=== PATIENT | female | born 1945 | race Caucasian/White ===

== ENCOUNTER 2019-06-11 10:37 | Emergency (ER) | payer OTHER, MEDICARE ==
[~2019-06-11] VITALS: Ht 162.6 cm; Wt 77.1 kg
[~2019-06-11 10:37] MED LIST: ATEN100 PO; CALCAVITDA PO; CYAN1000 PO; DIGO.25 PO; Spironolactone25 MG PO
[2019-06-11 11:23] LABS: BASOPHILS ABSOLUTE AUTO 0.01 K/mm3 (0.00-0.23); BASOPHILS PERCENT AUTO 0 % (0-2); EOSINOPHILS ABSOLUTE AUTO 0.29 K/mm3 (0.00-0.68); EOSINOPHILS PERCENT AUTO 4 % (0-6); Hematocrit 42.1 % (33.0-51.0); Hemoglobin 13.7 g/dL (11.5-16.0); IMMATURE GRAN ABSOLUTE AUTO 0.02 K/mm3 (0.00-0.10); IMMATURE GRAN PERCENT AUTO 0 % (0-1); LYMPHOCYTES ABSOLUTE AUTO 2.36 K/mm3 (0.84-5.20); LYMPHOCYTES PERCENT AUTO 36 % (21-46); MONOCYTES ABSOLUTE AUTO 0.49 K/mm3 (0.16-1.47); MONOCYTES PERCENT AUTO 7 % (4-13); Mean Corpuscular HGB 27.8 pg (26.0-34.0); Mean Corpuscular HGB Conc 32.5 g/dL (31.5-36.5); Mean Corpuscular Volume 86 fL (80-100); Mean Platelet Volume 9.8 fL (9.1-12.4); NEUTROPHILS ABSOLUTE AUTO 3.42 K/mm3 (1.96-9.15); NEUTROPHILS PERCENT AUTO 52 % (41-73); Platelet Count 216 K/mm3 (150-400); RDW Coefficient Variation 13.4 % (11.7-14.2); RDW Standard Deviation 41.6 fL (35.1-46.3); Red Blood Cell Count 4.92 M/mm3 (3.80-5.20); White Blood Cell Count 6.59 K/mm3 (4.00-11.30)
[2019-06-11 11:49] LABS: Alanine Aminotransfer (ALT/SGP 34 U/L (12-78); Albumin, Blood 4.2 g/dL (3.4-5.0); Albumin/Globulin Ratio 1.1 (0.8-1.8); Alk Phos 82 U/L (50-136); Anion Gap 8 mmol/L (6-16); Aspartate Aminotrans (AST/SGOT 25 U/L (12-37); Bilirubin, Total 0.9 mg/dL (0.1-1.0); Blood Urea Nitrogen 20 mg/dL (8-24); Bun/Creatinine Ratio 30.4 (12.0-20.0); CO2, Blood 28 mmol/L (21-32); Calcium, Blood 8.9 mg/dL (8.5-10.1); Chloride, Blood 102 mmol/L (98-108); Creatinine, Blood 0.66 mg/dL (0.40-1.00); Globulin, Blood 3.9 g/dL (2.2-4.0); Glomerular Filtration Rate >60 (60-); Glucose, Blood 124 mg/dL (70-99); Sodium, Blood 138 mmol/L (136-145); Total Protein, Blood 8.1 g/dL (6.4-8.2); Troponin I <0.015 ng/mL (0.000-0.040)
== END 2019-06-11 13:49 | disposition home or self-care (01) ==
LOC: ER 10:37
PROVIDERS: Emergency Medicine
DX: I48.91 Unspecified atrial fibrillation (principal); Z88.5 Allergy status to narcotic agent; Z88.6 Allergy status to analgesic agent; Z88.8 Allergy status to other drugs, medicaments and biological substances; Z79.899 Other long term (current) drug therapy; Z87.891 Personal history of nicotine dependence
CPT/HCPCS: 36415; 71046; 80053; 83880; 84484; 85025; 93005; 93010; 99285-25

== ENCOUNTER 2021-02-02 09:23 | Inpatient (IN) | payer BC, MEDICARE ==
[~2021-02-02] VITALS: Ht 162.6 cm; Wt 71.2 kg
[2021-02-02 10:10] LABS: BASOPHILS ABSOLUTE AUTO 0.01 K/mm3 (0.00-0.23); BASOPHILS PERCENT AUTO 0 % (0-2); EOSINOPHILS ABSOLUTE AUTO 0.06 K/mm3 (0.00-0.68); EOSINOPHILS PERCENT AUTO 1 % (0-6); Hematocrit 39.6 % (33.0-51.0); IMMATURE GRAN ABSOLUTE AUTO 0.04 K/mm3 (0.00-0.10); IMMATURE GRAN PERCENT AUTO 1 % (0-1); LYMPHOCYTES ABSOLUTE AUTO 1.36 K/mm3 (0.84-5.20); LYMPHOCYTES PERCENT AUTO 16 % (21-46); MONOCYTES ABSOLUTE AUTO 0.61 K/mm3 (0.16-1.47); MONOCYTES PERCENT AUTO 7 % (4-13); Mean Corpuscular HGB 28.6 pg (26.0-34.0); Mean Corpuscular HGB Conc 32.8 g/dL (31.5-36.5); Mean Corpuscular Volume 87 fL (80-100); Mean Platelet Volume 9.9 fL (9.1-12.4); NEUTROPHILS ABSOLUTE AUTO 6.22 K/mm3 (1.96-9.15); NEUTROPHILS PERCENT AUTO 75 % (41-73); Platelet Count 209 K/mm3 (150-400); RDW Coefficient Variation 12.9 % (11.7-14.2); RDW Standard Deviation 40.5 fL (35.1-46.3); Red Blood Cell Count 4.55 M/mm3 (3.80-5.20)
[2021-02-02 10:23] LABS: Source, Urine Clean Catch
[2021-02-02 10:27] LABS: Blood, Urine 1+ (Neg); Glucose Qualitative, Urine Neg (Neg); Ketones, Urine 1+ (Neg); Leukocyte Esterase, Urine 2+ (Neg); Nitrite, Urine Pos (Neg); Protein, Urine 2+ (Neg); Specific Gravity, Urine 1.025 (1.003-1.022); Urobilinogen, Urine 2+ (Normal)
[2021-02-02 10:28] LABS: Alanine Aminotransfer (ALT/SGP 124 U/L (12-78); Albumin, Blood 4.1 g/dL (3.4-5.0); Alk Phos 136 U/L (50-136); Anion Gap 4 mmol/L (6-16); Aspartate Aminotrans (AST/SGOT 196 U/L (12-37); Bilirubin, Total 1.7 mg/dL (0.1-1.0); Blood Urea Nitrogen 18 mg/dL (8-24); Bun/Creatinine Ratio 24.9 (12.0-20.0); CO2, Blood 31 mmol/L (21-32); Calcium, Blood 9.1 mg/dL (8.5-10.1); Chloride, Blood 102 mmol/L (98-108); Creatinine, Blood 0.72 mg/dL (0.40-1.00); Glomerular Filtration Rate >60 (60-); Glucose, Blood 144 mg/dL (70-99); Potassium, Blood 4.2 mmol/L (3.5-5.5); Sodium, Blood 137 mmol/L (136-145); Total Protein, Blood 8.1 g/dL (6.4-8.2)
[2021-02-02 10:47] LABS: Appearance, Urine Cloudy (Clear); Bilirubin, Urine 1+ (Neg); Color, Urine Orange (P-Yellow)
[2021-02-02 10:49] LABS: Amorphous Heavy (0-Heavy); Bacteria Mod /hpf; Mucus Light (0-Heavy); Red Blood Cells, Urine 0-2 /hpf (0-2); Squamous Epithelial Cells Few /hpf (Few)
[2021-02-02] MEDS ORDERED: METO100ER PO (12:21)
[2021-02-02] MEDS ORDERED: ELIQUIS5 M3 PO (12:22)
[2021-02-02 12:48] LABS: Influenza A, PCR NEGATIVE (NEGATIVE); Influenza B, PCR NEGATIVE (NEGATIVE); Resp Syncytial Virus, PCR NEGATIVE (NEGATIVE); SARS-Cov-2 (COVID-19) PCR, MMC NEGATIVE (NEGATIVE)
--- NOTE | 2021-02-02 18:04 | NUR ---
PT HAS BEEN STABLE SINCE ADMISSION. PT HAS HAD MINIMAL COMPLAINTS OF PAIN, DOES NOT PREFER TO TAKE PAIN MEDICATION. NO NAUSEA. STARTED ON CLEARS THIS EVENING. DR CEE IN TO CONSULT. PLAN FOR LABS IN AM. PT TAKES ELEQUIS THERFORE HAS TO WAIT 48 HOURS BEFORE SURGERY. PT VOIDING CLOUDY URINE, DENIES PAIN OR FREQUENCY SYMPTOMS, UA PENDING. IV INFUSING. PAS IN PLACE. CALLS APPROPRIATELY NEEDED.
[2021-02-03 04:29] LABS: Hematocrit 32.5 % (33.0-51.0); Hemoglobin 10.7 g/dL (11.5-16.0); Mean Corpuscular HGB 28.5 pg (26.0-34.0); Mean Corpuscular HGB Conc 32.9 g/dL (31.5-36.5); Mean Corpuscular Volume 87 fL (80-100); Mean Platelet Volume 10.2 fL (9.1-12.4); Platelet Count 160 K/mm3 (150-400); RDW Coefficient Variation 12.7 % (11.7-14.2); RDW Standard Deviation 40.1 fL (35.1-46.3); Red Blood Cell Count 3.75 M/mm3 (3.80-5.20); White Blood Cell Count 5.61 K/mm3 (4.00-11.30)
--- NOTE | 2021-02-03 04:41 | NUR ---
SHIFT SUMMARY: PT A&O X4. VS WNL THROUGHOUT SHIFT. PT MEDICATED ONCE THIS SHIFT WITH 12.5MCG OF FENTANYL PER EMAR. PT C/O MILD NAUSEA THIS MORNING, HOWEVER DECLINES MEDICATION. IVF AND IV ABX INFUSING PER EMAR. PT TOLERATING A SMALL AMOUNT OF CLEAR LIQUIDS. INDEPENDENT IN ROOM. VOIDING WELL. AWAITING SURGERY.
[2021-02-03 04:43] LABS: Alanine Aminotransfer (ALT/SGP 234 U/L (12-78); Albumin, Blood 3.1 g/dL (3.4-5.0); Alk Phos 152 U/L (50-136); Anion Gap 6 mmol/L (6-16); Aspartate Aminotrans (AST/SGOT 173 U/L (12-37); Bilirubin, Total 4.4 mg/dL (0.1-1.0); Blood Urea Nitrogen 11 mg/dL (8-24); Bun/Creatinine Ratio 17.2 (12.0-20.0); CO2, Blood 27 mmol/L (21-32); Calcium, Blood 8.4 mg/dL (8.5-10.1); Chloride, Blood 105 mmol/L (98-108); Creatinine, Blood 0.64 mg/dL (0.40-1.00); Globulin, Blood 3.1 g/dL (2.2-4.0); Glomerular Filtration Rate >60 (60-); Glucose, Blood 88 mg/dL (70-99); Potassium, Blood 3.9 mmol/L (3.5-5.5); Sodium, Blood 138 mmol/L (136-145); Total Protein, Blood 6.2 g/dL (6.4-8.2)
--- NOTE | 2021-02-04 03:03 | NUR ---
SHIFT SUMMARY: NO SIGNIFICANT CHANGES THIS SHIFT. PT MEDICATED ONCE WITH 12.5MCG OF FENTANYL. DENIES N/V. INDEPENDENT IN ROOM. VOIDING WELL. PT HAS BEEN KEPT NPO SINCE MIDNIGHT FOR POSSIBLE SURGERY TODAY. IF NO SURGERY TODAY THEN PLAN FOR SURGERY ON TUESDAY WITH DR. CEE.
[2021-02-04 05:01] LABS: Alanine Aminotransfer (ALT/SGP 239 U/L (12-78); Albumin/Globulin Ratio 0.9 (0.8-1.8); Alk Phos 230 U/L (50-136); Anion Gap 5 mmol/L (6-16); Aspartate Aminotrans (AST/SGOT 151 U/L (12-37); Bilirubin, Total 5.9 mg/dL (0.1-1.0); Blood Urea Nitrogen 6 mg/dL (8-24); Bun/Creatinine Ratio 10.4 (12.0-20.0); CO2, Blood 29 mmol/L (21-32); Calcium, Blood 8.5 mg/dL (8.5-10.1); Chloride, Blood 104 mmol/L (98-108); Creatinine, Blood 0.58 mg/dL (0.40-1.00); Globulin, Blood 3.2 g/dL (2.2-4.0); Glomerular Filtration Rate >60 (60-); Glucose, Blood 101 mg/dL (70-99); Potassium, Blood 3.6 mmol/L (3.5-5.5); Sodium, Blood 138 mmol/L (136-145); Total Protein, Blood 6.2 g/dL (6.4-8.2)
--- NOTE | 2021-02-04 07:15 | NUR ---
ASSUMED CARE: PT INDEPENDENT IN ROOM, DENIES PAIN. NPO SINCE [place] FOR POSSIBLE LORI THIS AM. DENIES NEEDS OR CONCERNS.
--- NOTE | 2021-02-04 08:12 | NUR ---
PATIENT TAKEN TO OR BY [facility].
--- NOTE | 2021-02-04 08:23 | NUR ---
History, Chart, Medications and Allergies reviewed before start of procedure. Lungs clear T/O to Auscultation. Patient confirms NPO status and agrees with scheduled surgery.
--- NOTE | 2021-02-04 10:02 | NUR ---
02/04/21 1002 ERUMЕЛЕНА PT RECEIVED SCHEDULED DOSE OF ANTIBIOTICS THIS AM PRIOR TO PROCEDURE PER DR ORDERS.
--- NOTE | 2021-02-04 12:30 | NUR ---
PT RETURNS FROM OR WITH 4 GUAZE DRESSINGS TO ABDOMEN AND PONCHO DRAIN IN PLACE WITH SMALL AMOUNT OF CRANBERRY COLORED DRAINAGE. PT IS AWAKE BUT UNSTEADY ON FEET. ASSISTED TO BATHROOM. FORENSIC LOCKSMITH AT BEDSIDE AT THIS TIME.
--- NOTE | 2021-02-04 17:48 | NUR ---
SHIFT SUMMARY: PT WENT TO OR TODAY AND HAD CHOLECYSTECTOMY DONE. RETURNED WITH PONCHO DRAIN IN PLACE. 60CC REMOVED FROM IT THIS SHIFT OF CRANBERRY COLORED DRAINAGE. PT MEDICATED X1 FOR PAIN AND NAUSEA. FAMILY AT BEDSIDE. NO ACUTE NEEDS OR CONCERNS.
[2021-02-05 05:26] LABS: BASOPHILS PERCENT AUTO 0 % (0-2); EOSINOPHILS ABSOLUTE AUTO 0.01 K/mm3 (0.00-0.68); EOSINOPHILS PERCENT AUTO 0 % (0-6); Hemoglobin 11.4 g/dL (11.5-16.0); IMMATURE GRAN ABSOLUTE AUTO 0.04 K/mm3 (0.00-0.10); IMMATURE GRAN PERCENT AUTO 1 % (0-1); LYMPHOCYTES ABSOLUTE AUTO 0.91 K/mm3 (0.84-5.20); LYMPHOCYTES PERCENT AUTO 12 % (21-46); MONOCYTES ABSOLUTE AUTO 0.54 K/mm3 (0.16-1.47); MONOCYTES PERCENT AUTO 7 % (4-13); Mean Corpuscular HGB 28.2 pg (26.0-34.0); Mean Corpuscular HGB Conc 32.6 g/dL (31.5-36.5); Mean Corpuscular Volume 87 fL (80-100); NEUTROPHILS ABSOLUTE AUTO 5.86 K/mm3 (1.96-9.15); NEUTROPHILS PERCENT AUTO 80 % (41-73); Platelet Count 199 K/mm3 (150-400); RDW Coefficient Variation 12.9 % (11.7-14.2); RDW Standard Deviation 40.8 fL (35.1-46.3); Red Blood Cell Count 4.04 M/mm3 (3.80-5.20); White Blood Cell Count 7.36 K/mm3 (4.00-11.30)
[2021-02-05 05:54] LABS: Alanine Aminotransfer (ALT/SGP 334 U/L (12-78); Albumin/Globulin Ratio 0.9 (0.8-1.8); Alk Phos 249 U/L (50-136); Anion Gap 4 mmol/L (6-16); Aspartate Aminotrans (AST/SGOT 220 U/L (12-37); Bilirubin, Total 3.5 mg/dL (0.1-1.0); Blood Urea Nitrogen 6 mg/dL (8-24); Bun/Creatinine Ratio 10.5 (12.0-20.0); CO2, Blood 31 mmol/L (21-32); Calcium, Blood 8.5 mg/dL (8.5-10.1); Chloride, Blood 102 mmol/L (98-108); Creatinine, Blood 0.57 mg/dL (0.40-1.00); Globulin, Blood 3.5 g/dL (2.2-4.0); Glomerular Filtration Rate >60 (60-); Glucose, Blood 120 mg/dL (70-99); Magnesium, Blood 1.9 mg/dL (1.6-2.4); Potassium, Blood 3.7 mmol/L (3.5-5.5); Sodium, Blood 137 mmol/L (136-145); Total Protein, Blood 6.5 g/dL (6.4-8.2)
--- NOTE | 2021-02-05 08:04 | NUR ---
SUMMARY PT ALLOWED ONE DOSE IV PAIN MEDS LAST NIGHT, BUT REFUSED FURTHER. DSNGS D/I. VOIDING AND TOLERATING PO.
--- NOTE | 2021-02-05 08:09 | NUR ---
DENIES ANY NEED FOR PAIN MEDS THIS AM, REPORTS TOLERATING CLEAR LIQUIDS WELL, DIET ADVANCED TO FULL LIQUIDS, DENIES ANY NAUSEA, CONT. TO MONITOR FOR ANY CHANGES.
--- NOTE | 2021-02-05 18:14 | NUR ---
SUMMARY DENIED ANY PAIN T/O SHIFT, PT/OT CONSULT TODAY, PT AMBULATING WITHOUT DIFFICULTY, TOLERATED REGULAR DIET WELL, ABD LAP INCISIONS C/D/I, NO ACUTE CHAGNES THIS SHIFT.
[2021-02-06 04:40] LABS: Hematocrit 29.8 % (33.0-51.0); Hemoglobin 9.7 g/dL (11.5-16.0); Mean Corpuscular HGB 28.2 pg (26.0-34.0); Mean Corpuscular HGB Conc 32.6 g/dL (31.5-36.5); Mean Corpuscular Volume 87 fL (80-100); Mean Platelet Volume 10.1 fL (9.1-12.4); Platelet Count 174 K/mm3 (150-400); RDW Coefficient Variation 13.2 % (11.7-14.2); RDW Standard Deviation 41.2 fL (35.1-46.3); Red Blood Cell Count 3.44 M/mm3 (3.80-5.20); White Blood Cell Count 5.61 K/mm3 (4.00-11.30)
[2021-02-06 04:57] LABS: Alanine Aminotransfer (ALT/SGP 278 U/L (12-78); Albumin, Blood 2.7 g/dL (3.4-5.0); Albumin/Globulin Ratio 0.9 (0.8-1.8); Alk Phos 197 U/L (50-136); Anion Gap 4 mmol/L (6-16); Aspartate Aminotrans (AST/SGOT 140 U/L (12-37); Bilirubin, Total 1.5 mg/dL (0.1-1.0); Blood Urea Nitrogen 7 mg/dL (8-24); Bun/Creatinine Ratio 11.6 (12.0-20.0); CO2, Blood 31 mmol/L (21-32); Calcium, Blood 8.1 mg/dL (8.5-10.1); Chloride, Blood 107 mmol/L (98-108); Glomerular Filtration Rate >60 (60-); Glucose, Blood 93 mg/dL (70-99); Magnesium, Blood 1.9 mg/dL (1.6-2.4); Phosphorus, Blood 2.4 mg/dL (2.5-4.9); Potassium, Blood 3.5 mmol/L (3.5-5.5); Sodium, Blood 142 mmol/L (136-145); Total Protein, Blood 5.7 g/dL (6.4-8.2)
--- NOTE | 2021-02-06 07:13 | NUR ---
REPORTS HAVING SOME INCISIONAL PAIN BUT DENIES ANY NEED FOR PAIN MEDS AT THIS TIME, DENIES ANY NAUSEA, PASSING FLATUS, ENCOURAGED TO AMBULATE MORE IN THE HALLS.
--- NOTE | 2021-02-06 07:30 | NUR ---
SUMMARY PT REPORTS PAIN, BUT DENIES NEED FOR PAIN MEDS THIS SHIFT.
[2021-02-06] MEDS ORDERED: Norco 7.5-3251 EACH PO (10:38)
[2021-02-06] MEDS ORDERED: ONDA4 PO (11:00)
[2021-02-06] MEDS ORDERED: VISBIOME 112.51 EACH PO (11:01)
[2021-02-06] MEDS ORDERED: ASCO500 PO (11:02)
[2021-02-06] MEDS ORDERED: FERSU300 PO (11:06)
--- NOTE | 2021-02-06 11:55 | NUR ---
DC'D HOME, DC INSTRUCTIONS GIVEN, VERBALIZED UNDERSTANDING, IV DC'D, CATH INTACT.
== END 2021-02-06 11:25 | disposition home or self-care (01) | DRG 419 ==
LOC: ER 09:23 → SURS 12:25
PROVIDERS: Emergency Medicine; Family Medicine; Nurse Practitioner Acute Care; Surgery; ADMIT Internal Medicine
PROC: BF532Z0 Other Imaging of Gallbladder and Bile Ducts using Fluorescing Agent, Intraoperative (ICD-10-PCS; 2021-02-04)
PROC: 0FT44ZZ Resection of Gallbladder, Percutaneous Endoscopic Approach (ICD-10-PCS; principal; 2021-02-04 09:15)
DX: K80.42 Calculus of bile duct with acute cholecystitis without obstruction (principal); I48.91 Unspecified atrial fibrillation; I48.0 Paroxysmal atrial fibrillation; I10 Essential (primary) hypertension; Z20.822 Contact with and (suspected) exposure to COVID-19; Z66 Do not resuscitate; Z79.01 Long term (current) use of anticoagulants; R82.71 Bacteriuria
CPT/HCPCS: 0241U; 36415; 71045; 74181; 74300; 76705; 80053; 81001; 83690; 83735; 84100; 85025; 85027; 87086; 88304; 93005; 93010; 96374; 96375; 96376; 97110; 97162; 97165; 97530; 97535; 99285-25; A9270; C1729; J0295; J1100; J1885; J2250; J2370; J2405; J3010; J7050; J7120

== ENCOUNTER 2024-06-20 09:45 | Day surgery (SDC) | payer OTHER, MEDICARE ==
[~2024-06-20] VITALS: Ht 162.6 cm; Wt 78.8 kg
[~2024-06-20 09:45] MED LIST changes: +ASCO500 PO; +ELIQUIS5 M3 PO; +FERSU300 PO; +Lactated Ringer's 1,000 ML IV ONE; +METO100ER PO; +Norco 7.5-3251 EACH PO; +ONDA4 PO; +VISBIOME 112.51 EACH PO; +propofoL 50 ML IV ONE
[2024-06-20] MEDS ORDERED: Lactated Ringer's 1,000 ML IV ONE (11:30)
[2024-06-20] MEDS ORDERED: Midazolam HCL 1 MG/ML 5MLVIAL ONE ×2 (11:52→12:35)
[2024-06-20] MEDS ORDERED: FentaNYL Citrate 50 MCG/ML 2 ML Injection ONE (11:52)
[2024-06-20] MEDS ORDERED: Naloxone HCl 0.4MG / ML 1ML Vial ONE (11:53)
[2024-06-20] MEDS ORDERED: Flumazenil 0.1 MG / ML 5ML Vial ONE (11:53)
[2024-06-20] MEDS ORDERED: Lidocaine HCl 4% 5 ML SDA ONE (12:11)
--- NOTE | 2024-06-20 12:23 | NUR ---
06/20/24 1223 GERARDO ANDERSEN LIDOCAIN 4% 3ML TO BACK OF THROAT PRE PROCEDURE
[2024-06-20 14:13] VITALS: BP 101/62
== END 2024-06-20 14:04 | disposition home or self-care (01) ==
LOC: ORSCSDS 09:45
PROVIDERS: Internal Medicine Gastroenterology
PROC: 0DBK8ZX Excision of Ascending Colon, Via Natural or Artificial Opening Endoscopic, Diagnostic (ICD-10-PCS; principal; 2024-06-20 11:00)
PROC: 0D758ZZ Dilation of Esophagus, Via Natural or Artificial Opening Endoscopic (ICD-10-PCS; principal; 2024-06-20 11:00)
DX: R13.10 Dysphagia, unspecified (principal); R10.13 Epigastric pain; Z12.11 Encounter for screening for malignant neoplasm of colon; Z86.010 Personal history of colon polyps; D12.2 Benign neoplasm of ascending colon; K21.00 Gastro-esophageal reflux disease with esophagitis, without bleeding; K22.2 Esophageal obstruction; K57.30 Diverticulosis of large intestine without perforation or abscess without bleeding; K31.4 Gastric diverticulum; I48.91 Unspecified atrial fibrillation; Z79.01 Long term (current) use of anticoagulants; Z79.899 Other long term (current) drug therapy; I10 Essential (primary) hypertension; E78.5 Hyperlipidemia, unspecified; E78.00 Pure hypercholesterolemia, unspecified
CPT/HCPCS: 88305; C1726; J2001; J2250; J2310; J2704; J3010; J7120